=== PATIENT | female | born 1980 | race Caucasian/White ===

== ENCOUNTER 2019-10-07 13:09 | Outpatient (CLI) | payer BC, SELFPAY ==
--- NOTE | ~2019-10-07 | MMUS_ITS ---
EXAMINATION: MM diagnostic sachin BI w jeniffer, US breast RT limited HISTORY: Mastodynia, history of right breast biopsy TECHNIQUE: Craniocaudal, mediolateral, and mediolateral oblique 3-D tomosynthesis images of the osbaldo ts were performed and synthetic 2-D images were generated. Spot compression view of the right breast is also obtained. CAD analysis was submitted and interpreted. High resolution limited right breast ul trasound was performed. COMPARISON: 04/11/2017, 03/31/2016 BREAST PARENCHYMAL COMPOSITION: There are scattered areas of fibroglandular density. FINDINGS: MAMMOGRAPHIC FINDINGS: There is a stable mass with biopsy change in the right breast at the 10:00 location. No suspicious cy stic or solid mass is identified in either breast. There is no mammographic correlate for the patient 's breast pain. ULTRASOUND: A 1.3 cm mass is present at the 10:00 location 2 cm from the nipple on the right breast which has und ergone previous biopsy. No suspicious cystic or solid mass is identified. IMPRESSION: 1. No specific mammographic or sonographic correlate is identified for the patient's breast pain Furt her evaluation at this time should be based on clinical assessment. Continued follow-up physical exam ination is recommended. 2. Recommend routine screening mammography in one year. BI-RADS Category 2: Benign finding(s). Reviewed, dictated and finalized at location A. IMPRESSION: 1. No specific mammographic or sonographic correlate is identified for the nikkie ent's breast pain Further evaluation at this time should be based on clinical a ssessment. Continued follow-up physical examination is recommended. 2. Recommend routine screening mammography in one year. BI-RADS Category 2: Benign finding(s).
== END 2019-10-07 13:10 | disposition home or self-care (01) ==
PROVIDERS: PCP Nurse Practitioner; Visit Provider Nurse Practitioner
DX: N64.59 Other signs and symptoms in breast (principal)
CPT/HCPCS: 76642; 77062; 77066; G0279

== ENCOUNTER → 2020-09-18 15:27 | Outpatient (CLI) | payer BC, SELFPAY ==
--- NOTE | ~2020-09-18 | US_ITS ---
EXAMINATION: US transvaginal DATE: 09/18/2020 16:16 INDICATION: Enlarged uterus. TECHNIQUE: Multiple transvaginal sonographic images of the pelvis were obtained. COMPARISON: None. FINDINGS: The uterus measures 7.5 x 5.2 x 5.7. There is no free fluid in the pelvis. The endometrial complex me asures 4 mm in thickness. The ovaries are not visualized. IMPRESSION: 1. Normal uterus. Reviewed, dictated and finalized at location A. IMPRESSION: 1. Normal uterus.
== END ==
PROVIDERS: Visit Provider Obstetrics & Gynecology Gynecology
DX: N85.2 Hypertrophy of uterus (principal)
CPT/HCPCS: 76830

== ENCOUNTER → 2020-10-12 14:17 | Outpatient (CLI) | payer BC, SELFPAY ==
--- NOTE | ~2020-10-12 | MMUS_ITS ---
EXAMINATION: MM diagnostic sachin BI w jeniffer, US breast RT limited HISTORY: Follow-up right breast mass TECHNIQUE: Additional 3-D tomosynthesis images of the breasts were performed and synthetic 2-D images were generated. CAD analysis was submitted and interpreted. High resolution limited right breast ult rasound was performed. COMPARISON: Comparison to multiple prior studies sequentially, with oldest reviewed study dated 11/2016. BREAST PARENCHYMAL COMPOSITION: Breast composed of scattered areas of fibroglandular density. FINDINGS: MAMMOGRAPHIC FINDINGS: There is a stable circumscribed 1.5 cm mass in the upper outer quadrant of the right breast containin g a tissue marker from previous benign biopsy. There is a smaller 6 mm mass in the upper outer quadra nt of the right breast. The left breast is stable without evidence for malignancy. ULTRASOUND: Right breast ultrasound: There is a stable 1.3 cm oval circumscribed hypoechoic mass with internal ec hoes, consistent with tissue marker. At 10-11 o'clock, 6 cm from the nipple, there is a 6 mm cyst. At 3:00, 3 cm from the nipple, there is a 3 mm cyst. At 3-4:00, 3 cm from the nipple, there is an oval hypoechoic mass without posterior features. There is parallel orientation. This mass measures up to 1 .1 cm, likely benign cluster of microcysts or intramammary lymph node. Near the nipple there is an 8 mm cyst. IMPRESSION: 1. Probable benign right breast masses. 2. Recommend 6 month follow-up right breast ultrasound BI-RADS category 3, probably benign findings. Reviewed, dictated and finalized at location A. IMPRESSION: 1. Probable benign right breast masses. 2. Recommend 6 month follow-up right breast ultrasound BI-RADS category 3, probably benign findings.
== END ==
PROVIDERS: Visit Provider Nurse Practitioner
DX: N64.4 Mastodynia (principal); R92.8 Other abnormal and inconclusive findings on diagnostic imaging of breast
CPT/HCPCS: 76642; 77062; 77066; G0279

== ENCOUNTER 2021-02-01 10:36 | Outpatient (CLI) | payer BC, SELFPAY ==
--- NOTE | ~2021-02-01 | XR_ITS ---
EXAMINATION: XR wrist LT 2V INDICATION: Left wrist pain TECHNIQUE: Two views of the left wrist are obtained. COMPARISON: None available FINDINGS: There is no fracture, dislocation, or subluxation. The bones, soft tissues, and joint space s are normal. IMPRESSION: 1. No acute osseous abnormality. Reviewed, dictated and finalized at location B. NG SQUAD WORKER
== END 2021-02-01 10:37 | disposition home or self-care (01) ==
LOC: ANHLAB 10:38
PROVIDERS: PCP Family Medicine; Visit Provider Family Medicine
DX: M25.532 Pain in left wrist (principal)
CPT/HCPCS: 73100

== ENCOUNTER → 2021-02-11 12:51 | Outpatient (CLI) | payer BC, SELFPAY ==
--- NOTE | ~2021-02-11 | CT_ITS ---
EXAMINATION: CT wrist LT wo con DATE: 02/11/2021 13:26 INDICATION: Left wrist pain. TECHNIQUE: Computed tomography (CT) of the left wrist was performed without intravenous contrast. Aut omated exposure control and iterative reconstruction technique were employed. The dose-length product was 59.43 mGy-cm. COMPARISON: Left wrist radiograph 02/01/2021 FINDINGS: Bone alignment is normal. No fracture. There is a benign bone island in capitate. Joint spa megan are normal. The soft tissues are unremarkable. IMPRESSION: 1. Normal left wrist. Reviewed, dictated and finalized at location B. ENSING AND MEASURING OPTICIAN IMPRESSION: 1. Normal left wrist.
== END ==
PROVIDERS: PCP Family Medicine; Visit Provider Nurse Practitioner Gerontology
DX: M25.532 Pain in left wrist (principal)
CPT/HCPCS: 73200

== ENCOUNTER → 2021-05-10 09:51 | Outpatient (CLI) | payer BC, SELFPAY ==
--- NOTE | ~2021-05-10 | US_ITS ---
US breast RT limited 05/10/2021 10:14 Indication: Follow-up right breast mass Procedure: High-resolution Limited right breast ultrasound Comparison: Ultrasound dated 10/12/2020 Findings: There are multiple cysts of the right breast. There is an oval hypoechoic mass at 11:00, 4 cm from the nipple measuring 12 x 9 x 1.3 cm, unchanged from prior examination allowing for differenc es of technique. There is parallel orientation, no internal vascularity and internal calcifications. Impression: 1: Stable benign-appearing right breast mass at 11:00, 4 cm from the nipple. BI-RADS CATEGORY 3-PROBABLY BENIGN FINDING RECOMMENDATION: Six-month follow-up Limited right breast ultrasound and bilateral mammogram recommend ed. Reviewed, dictated and finalized at location A. VE MACHINE TENDER Impression: 1: Stable benign-appearing right breast mass at 11:00, 4 cm from the nipple. BI-RADS CATEGORY 3-PROBABLY BENIGN FINDING RECOMMENDATION: Six-month follow-up Limited right breast ultrasound and bilater al mammogram recommended.
== END ==
PROVIDERS: Visit Provider Obstetrics & Gynecology Gynecology
DX: N63.10 Unspecified lump in the right breast, unspecified quadrant (principal); R92.8 Other abnormal and inconclusive findings on diagnostic imaging of breast
CPT/HCPCS: 76642

== ENCOUNTER 2021-09-27 13:24 | Outpatient (CLI) | payer BC, SELFPAY ==
--- NOTE | ~2021-09-27 | MMUS_ITS ---
EXAMINATION: MM diagnostic sachin BI w jeniffer, US breast RT limited HISTORY: Follow-up right breast mass TECHNIQUE: Additional 3-D tomosynthesis images of the breasts were performed and synthetic 2-D images were generated. CAD analysis was submitted and interpreted. High resolution Limited right breast ult rasound was performed. COMPARISON: Comparison to multiple prior studies sequentially, with oldest reviewed study dated 01/22. BREAST PARENCHYMAL COMPOSITION: The breasts are heterogenously dense, which may obscure small masses FINDINGS: MAMMOGRAPHIC FINDINGS: The breasts are stable. Mass in the upper outer quadrant of the right breast is unchanged containing a tissue marker from previous benign biopsy. ULTRASOUND: Limited right breast ultrasound: At 11:00, 4 cm from the nipple, there is an oval circumscribed hypoe choic mass measuring 1.4 x 0.8 x 1.2 cm compared with 1.4 x 1.3 x 0.8 cm on 10/07/2019, without signif icant interval change. At 11:00, 6 cm from the nipple there are 2 adjacent cysts, largest measuring 8 mm. IMPRESSION: 1. No evidence for malignancy in either breast. Stable benign-appearing right breast mass. 2. Routine yearly screening mammogram and regular clinical breast examination are recommended. BI-RADS Category 2: Benign finding(s). Reviewed, dictated and finalized at location A. IMPRESSION: 1. No evidence for malignancy in either breast. Stable benign-appearing right b reast mass. 2. Routine yearly screening mammogram and regular clinical breast examination a re recommended. BI-RADS Category 2: Benign finding(s).
== END 2021-09-27 13:25 | disposition home or self-care (01) ==
PROVIDERS: PCP Family Medicine; Visit Provider Nurse Practitioner
DX: R92.8 Other abnormal and inconclusive findings on diagnostic imaging of breast (principal); N63.10 Unspecified lump in the right breast, unspecified quadrant
CPT/HCPCS: 76642; 77062; 77066; G0279

== ENCOUNTER 2021-11-11 01:27 | Day surgery (SDC) | payer BC, SELFPAY ==
[2021-11-05 13:15] VITALS: BMI 23.3
--- NOTE | 2021-11-05 13:35 | PC.NURSE ---
Report to the Outpatient Waiting Room, entrance under the green pavilion located off [facility], at 1230 on 11-11-21. OR Time: 1430. - You and your visitor will be asked to self-screen and do not enter if you have any COVID symptoms. - Only one visitor and NO children visitors are allowed at this time. - The patient visitor is requested to leave or wait in car when not with patient due to restrictions. - A mask is required within the hospital. Patients may have clear liquids (water, carbonated beverages, clear teas, apple juice) until 3 hours prior to surgery with a maximum of 20 ounces. 1130 - No food from midnight until time of surgery - Infants may have breast milk until 4 hours before surgery, formula 6 hours prior to surgery. - Children will be allowed to drink immediately following surgery. If applicable, please bring a bottle or sippy cup to assist with drinking. Juice, water, soda, and popsicles are readily available. For infants on formula, please bring formula the day of surgery. Pacifiers are allowed. Take the following medications with a SIP of water the morning of surgery: None Medications to discontinue per physician: Vitamins and supplements; ibuprofen Date to take last dose: 11-08-21; per Dr. Altamirano Please no make-up, nail ivorian, hairspray, perfume, deodorant, or body powder the day of surgery. No jewelry (including any body piercings) or valuables the day of surgery, leave them at home. Please take a shower or bath the night before, or the morning of, surgery with an antibacterial soap. Wear comfortable, loose fitting clothing. Children are encouraged to wear pajamas. - Jewelry must be removed prior to entering the operating room. Rings and piercings that are not removed may be cut off. - The hospital will not accept responsibility for valuables. - Please leave all valuables, including medications, at home the day of surgery. If you are going home after surgery, a licensed straddle truck driver must drive you home. - NO public transportation without another adult. - We recommend that an adult stay with you for 24 hours following discharge. - We also recommend that you do not drive, make important decision, drink alcoholic beverages, or take any drugs that were not prescribed by your health care provider for at least 24 hours after your discharge time. For Pediatric surgeries, we recommend two adults accompany the child home (only one inside the building at this time). Follow any additional instructions given to you from your surgeon. If you or anyone in your household have experienced Covid symptoms in the past week, please notify your surgeon or the nurse liaison at the phone number below for possible testing. Telephone instructions given to Dalila Quach and asked if any additional questions and then verbalized understanding. Patient advised to call surgeon office or pre surgery nurse liaison [phone] if any additional questions.
--- NOTE | 2021-11-11 08:32 | P.PNAN_ITS ---
Anes - Initial Pre Proc Eval Procedure: Operation Date: 11/11/21 14:15 Proposed Procedures p Hysteroscopy, Dilation and Curettage - Vinita Altamirano MD Date/Time: 11/11/21 08:32 Surgeon: Vinita Altamirano MD Pre Op Diagnosis: menorrhagia Patient Data Age: 41 Gender: F Height: 1.63 m Weight: 61.69 kg Allergies Allergy/AdvReac Type Severity Reaction Status Date / Time erythromycin base Allergy Intermediate SOB Verified 11/11/21 12:27 Home Medications Medication Instructions Recorded Confirmed Type ergocalciferol (vitamin D2) 1,250 1,250 mcg PO WEEKLY 11/05/21 11/11/21 History mcg (50,000 unit) capsule ibuprofen 200 mg tablet 400 mg PO Q6H PRN Headache 11/05/21 11/11/21 History linaclotide 72 mcg capsule 144 mcg PO QAM PRN Constipation 11/05/21 11/11/21 History (Linzess) Patient hx anesthesia problems: none Family hx anesthesia problems: none Results Review: All pre-operative results and documents have been reviewed as part of the pre-operative evaluation. [facility] Past Medical History Medical History (Updated 11/11/21 @ 13:11 by Dionisio Esparza MD) Constipation Menorrhagia Migraines Seasonal allergies Surgical History Surgical History (Updated 11/11/21 @ 09:00 by Vinita Altamirano MD) History of breast biopsy 2017 benign History of nasal surgery As a teenager Hx of section x3 Family History Family History Father Diabetes mellitus Ulcerative colitis Mother Osteopenia Gallbladder & bile duct stone, acute cholecystitis and obstruction Other Cerebrovascular accident Heart disease Social History Social History Social History: Smoking status: Never smoker Second hand tobacco smoke exposure: No Alcohol intake: current Alcohol use details: occasionally Substance use: never Substance use type: does not use Living arrangements: with family Gender identity (if verbalized by the patient): Female Sexual Orientation (if Verbalized by the Patient): Straight or Heterosexual Spiritual care concerns: No Anes - Eval Final PreProcedure Day of Procedure 11/11/21 08:32 Patient weight: normal Heart: regular rate and rhythm Lungs: clear to auscultation and normal air movement Airway: Mallampati scale class II Neurological: alert and oriented Last oral intake: >/= 8 hours ASA classification: II Emergent: no Anesthetic plan: proceed Anesthesia type and monitoring: general GIVS Results Review: All pre-operative results and documents have been reviewed as part of the pre- operative evaluation. Informed Consent: The patient's anesthetic plan and its attendant risks and benefits were discussed with the patient/family/POA. Questions were solicited and answers provided to the satisfaction of the patient/family/POA.
--- NOTE | 2021-11-11 08:56 | WPDHPUPDATE1 ---
History and Physical Update Update Date/Time: 11/11/21 08:56 History and Physical has been reviewed, including an updated exam of the patient. There are NO changes in the patient's condition. Risks, benefits, and alternatives have been discussed and questions answered. Patient agrees to proceed with procedure.
--- NOTE | 2021-11-11 08:57 | PM.HPGS ---
History of Present Illness History of Present Illness Consent: Risks, benefits, and alternatives have been discussed and questions answered. Patient agrees to proceed with procedure. Chief complaint: menorrhagia Narrative: Dalila Quach is a 41 year old female with increasingly heavy cycles. Patient goes through a tampon in less than an hour on her heavy day. Cycles are regular and last from 2 to 7 days. It was recommended to proceed with further workup with D&C hysteroscopy. Risks of infection, bleeding, perforation and possible pathology are reviewed. Patient agrees to proceed and all questions are answered. Review of Systems Constitutional: Constitutional: Reports fatigue and Reports headache(s) Genitourinary: Genitourinary: Reports other (Cramping) Musculoskeletal: Musculoskeletal: Reports arthralgias PMFSH Past Medical History Medical History (Updated 11/11/21 @ 09:00 by Vinita Altamirano MD) Constipation Migraines Seasonal allergies Surgical History Surgical History (Updated 11/11/21 @ 09:00 by Vinita Altamirano MD) History of breast biopsy 2017 benign History of nasal surgery As a teenager Hx of section x3 Family History Family History Father Diabetes mellitus Ulcerative colitis Mother Osteopenia Gallbladder & bile duct stone, acute cholecystitis and obstruction Other Cerebrovascular accident Heart disease Social History Social History Social History: Smoking status: Never smoker Second hand tobacco smoke exposure: No Alcohol intake: current Alcohol use details: occasionally Substance use: never Substance use type: does not use Living arrangements: with family Gender identity (if verbalized by the patient): Female Sexual Orientation (if Verbalized by the Patient): Straight or Heterosexual Spiritual care concerns: No Meds Home Medications and Allergies Home Medications Medication Instructions Recorded Confirmed Type ergocalciferol (vitamin D2) 1,250 1,250 mcg PO WEEKLY 11/05/21 11/05/21 History mcg (50,000 unit) capsule ibuprofen 200 mg tablet 400 mg PO Q6H PRN Headache 11/05/21 11/05/21 History linaclotide 72 mcg capsule 144 mcg PO QAM PRN Constipation 11/05/21 11/05/21 History (Linzess) Allergies Allergy/AdvReac Type Severity Reaction Status Date / Time erythromycin base Allergy Intermediate sob Verified 11/05/21 13:08 Exam Const: General: healthy appearing and alert Orientation/consciousness: patient oriented x3 GI: GI Palp: Yes Soft to palpation, No Tenderness to palpation present (GI) and No Palpable mass present : External Female Exam: normal external appearance Speculum Exam - Vagina: normal appearance of the vagina and normal vaginal discharge Speculum Exam - Cervix: normal appearance of the cervix Bimanual exam- vagina & uterus: uterine size normal and consistency normal Bimanual Exam- Adnexa, other: normal adnexae and No adnexal tenderness Neuro: General: patient oriented x3 Assessment and Plan Assessment and plan (1) Menorrhagia: Code(s): N92.0 - Excessive and frequent menstruation with regular cycle Status: Acute Assessment and Plan: Plan to proceed with D&C hysteroscopy
[2021-11-11] MEDS: ACETAMINOPHEN 500 MG TABLET 1000 MG PO (12:35)
[2021-11-11] MEDS: LACTATED RINGERS 1,000 ML 30 ML IV CONT (12:40)
[2021-11-11 12:45] VITALS: BP 104/64; PULSE 76; RESP 16; TEMP 36.9; O2SAT 100
[2021-11-11] MEDS: LIDOCAINE HCL 1% PF 30 ML VIAL 10 ML INFILTRATE (14:01)
[2021-11-11 14:10] VITALS: BP 107/68; PULSE 64; RESP 12
--- NOTE | 2021-11-11 14:12 | P.OP_ITS ---
Procedure Note - Detailed Date of Procedure 11/11/21 Pre-op Diagnosis menorrhagia Post-op Diagnosis Same Procedure Performed D&C hysteroscopy with MyoSure resection of polyps Surgeon Vinita Altamirano MD Anesthesia MAC and Local Findings Uterus sounds to 8cm. The endometrium is very shaggy with probable polyps versus secretory endometrium. There is a short midline septum. Description of Procedure The patient is taken to the operating room and placed under anesthesia in the dorsal lithotomy position. She was prepped and draped in the usual sterile fashion. [place] speculum was placed in the vagina and the cervix grasped on the anterior lip with a tenaculum. The cervix is injected in each quadrant with 1% lidocaine. The uterus is sounded to 8cm. The cervix is serially dilated to an 8 Hegar. The diagnostic hysteroscope was placed with the above-stated findings. MyoSure device is opened and placed and under direct visualization the thickened endometrium and polyps are excised. The device is removed and the medium sharp curette used to curette the endometrium until a good uterine cry was noted in all areas. All instruments are removed. Sponge, needle, and instrument counts are correct per the OR staff. Patient is awakened from anest hesia and taken to recovery in stable condition. Estimated Blood Loss 5 Drains No Packing No Pathology Yes (Endometrial shavings and curettings) Complications No immediate complications Condition Stable Disposition PACU
[2021-11-11 14:15] VITALS: BP 106/75; PULSE 69; RESP 12; O2SAT 100
[2021-11-11 14:45] VITALS: BP 103/61; PULSE 54; RESP 12; O2SAT 100
== END 2021-11-11 15:20 | disposition home or self-care (01) ==
PROVIDERS: PCP Family Medicine; Visit Provider Obstetrics & Gynecology Gynecology
PROC: 0U5B8ZZ Destruction of Endometrium, Via Natural or Artificial Opening Endoscopic (ICD-10-PCS; CPT 58563; principal; 2021-11-11 14:15)
DX: N92.0 Excessive and frequent menstruation with regular cycle (principal); K59.00 Constipation, unspecified
CPT/HCPCS: 58558; 88305; A9270; J2250; J2704; J3010; J7030; J7120

== ENCOUNTER → 2021-12-04 12:17 | Outpatient (CLI) | payer BC, SELFPAY ==
--- NOTE | ~2021-12-04 | MR_ITS ---
EXAMINATION: MR wrist LT wo con DATE: 12/04/2021 12:53 INDICATION: Left wrist pain. TECHNIQUE: Magnetic resonance imaging (MRI) of the wrist was performed without intravenous contrast. Sequences performed include coronal T1-weighted FSE, coronal PD-weighted FS FSE, axial PD-weighted FS FSE, axial PD-weighted FSE, sagittal PD-weighted FSE, and sagittal PD-weighted FS FSE. COMPARISON: Left wrist CT 02/11/2021, radiographs 02/01/2021 FINDINGS: Intrinsic ligaments: The scapholunate ligament and lunotriquetral ligament are normal. Triangular fibrocartilage complex (TFCC): The triangular fibrocartilage is normal. Extensor wrist: The extensor tendons are normal. Flexor wrist: The flexor tendons are normal. Median nerve is normal. Guyon's canal: The ulnar nerve is normal. Bones/other: Bone alignment is normal. No fracture. There is a 12 x 6 x 13 mm ganglion cyst dorsal to scaphoid, alysha bryanna, and capitate that likely arises from the lunatocapitate joint. IMPRESSION: 1. 12 x 6 x 13 mm ganglion cyst dorsal to scaphoid, lunate, and capitate that likely arises from the lunatocapitate joint. Reviewed, dictated and finalized at location A. IMPRESSION: 1. 12 x 6 x 13 mm ganglion cyst dorsal to scaphoid, lunate, and capitate that l ikely arises from the lunatocapitate joint.
== END ==
PROVIDERS: PCP Orthopaedic Surgery; Visit Provider Orthopaedic Surgery
DX: M25.832 Other specified joint disorders, left wrist (principal)
CPT/HCPCS: 73221

== ENCOUNTER 2022-01-27 01:14 | Day surgery (SDC) | payer BC, SELFPAY ==
[2022-01-21 14:41] VITALS: BMI 23.8
--- NOTE | 2022-01-21 14:47 | PC.NURSE ---
Report to the Outpatient Waiting Room, entrance under the green pavilion located off [facility], at time 0600 on date 01/27/22. Planned Procedure Time: 0730. Time changes happen often and if your time is changed the preop area will call you the afternoon before. - You and your visitor will be asked to self-screen and do not enter if you have any COVID symptoms. - We encourage only one visitor and NO visitors under age 16 are allowed at this time. Your visitor will receive communication by the phone number that is given day of service. - The patient visitor is requested to social distance or may leave the building when not with patient due to restrictions. - A mask is OPTIONAL within the hospital. Patients may have clear liquids (water, carbonated beverages, clear teas, apple juice) until 3 hours prior to surgery with a maximum of 20 ounces. - No food from midnight until time of surgery Take the following medications with a SIP of water the morning of surgery: NONE Medications to discontinue per physician: VITAMINS Date to take last dose: 01/23/22 Please no make-up, nail surinamese, hairspray, perfume, deodorant, or body powder the day of surgery. No jewelry (including any body piercings) or valuables the day of surgery, leave them at home. Please take a shower or bath the night before, or the morning of, surgery with an antibacterial soap. Wear comfortable, loose fitting clothing. - Jewelry must be removed prior to entering the operating room. Rings and piercings that are not removed may be cut off. - The hospital will not accept responsibility for valuables. - Please leave all valuables, including medications, at home the day of surgery. If you are going home after surgery, a licensed dump truck driver off highway must drive you home. - NO public transportation without another adult. - We recommend that an adult stay with you for 24 hours following discharge. - We also recommend that you do not drive, make important decision, drink alcoholic beverages, or take any drugs that were not prescribed by your health care provider for at least 24 hours after your discharge time. Follow any additional instructions given to you from your surgeon. If you or anyone in your household have experienced Covid symptoms in the past week, please notify your surgeon or the nurse liaison at the phone number below for possible testing. Telephone instructions given to PT - RODRI LEÓN and asked if any additional questions and then verbalized understanding. Patient advised to call surgeon office or pre surgery nurse liaison [phone] if any additional questions.
[2022-01-27 06:05] VITALS: BP 108/62; PULSE 72; RESP 16; TEMP 36.7; O2SAT 100
[2022-01-27] MEDS: KETOROLAC 15 MG/ML VIAL (*BKC) IV PUSH (06:44)
[2022-01-27] MEDS: ACETAMINOPHEN 500 MG TABLET 1000 MG PO (06:46)
[2022-01-27] MEDS: LACTATED RINGERS 1,000 ML 30 ML IV CONT (06:50)
--- NOTE | 2022-01-27 07:09 | WPDANESEPPF ---
Anes - Initial Pre Proc Eval Procedure: Operation Date: 01/27/22 07:30 Proposed Procedures p Excision Ganglion Cyst Left Wrist - Edd Martinez MD Date/Time: 01/27/22 07:09 Surgeon: Edd Martinez MD Pre Op Diagnosis: left wrist ganglion cyst Patient Data Age: 41 Gender: F Height: 1.63 m Weight: 63.8 kg Last Vital Signs Temp 36.7 C 01/27/22 06:05 Pulse 72 01/27/22 06:05 Resp 16 01/27/22 06:05 BP 108/62 01/27/22 06:05 Pulse Ox 100 01/27/22 06:05 O2 Del Method Room Air 01/27/22 06:05 Allergies Allergy/AdvReac Type Severity Reaction Status Date / Time erythromycin base Allergy Intermediate SOB Verified 01/27/22 06:06 Home Medications Medication Instructions Recorded Confirmed Type ergocalciferol (vitamin D2) 1,250 1,250 mcg PO WEEKLY 11/05/21 01/27/22 History mcg (50,000 unit) capsule ibuprofen 200 mg tablet 400 mg PO Q6H PRN Headache 11/05/21 01/27/22 History linaclotide 72 mcg capsule 144 mcg PO QAM PRN Constipation 11/05/21 01/27/22 History (Linzess) Patient hx anesthesia problems: none Family hx anesthesia problems: none Results Review: All pre-operative results and documents have been reviewed as part of the pre-operative evaluation. [facility] Past Medical History Medical History Constipation Ganglion cyst of dorsum of left wrist Menorrhagia Migraines Seasonal allergies Surgical History Surgical History History of breast biopsy 2017 benign History of nasal surgery As a teenager Hx of section x3 Family History Family History Father Diabetes mellitus Ulcerative colitis Mother Osteopenia Gallbladder & bile duct stone, acute cholecystitis and obstruction Other Cerebrovascular accident Heart disease Social History Social History Social History: Smoking status: Former smoker Second hand tobacco smoke exposure: No Additional smoking assessment comments: IN COLLEGE Alcohol intake: current Drinks per week: 1 Alcohol use details: occasionally Substance use: never Substance use type: does not use Living arrangements: with family Gender identity (if verbalized by the patient): Female Sexual Orientation (if Verbalized by the Patient): Straight or Heterosexual Spiritual care concerns: No Anes - Eval Final PreProcedure Day of Procedure 01/27/22 07:09 Patient weight: normal Heart: regular rate and rhythm Lungs: clear to auscultation Airway: Mallampati scale class 1 Neurological: alert and oriented Last oral intake: >/= 8 hours ASA classification: II Emergent: no Anesthetic plan: proceed Anesthesia type and monitoring: general GIVS and standard monitoring Results Review: All pre-operative results and documents have been reviewed as part of the pre-operative evaluation. Informed Consent: The patient's anesthetic plan and its attendant risks and benefits were discussed with the patient/family/POA. Questions were solicited and answers provided to the satisfaction of the patient/family/POA.
--- NOTE | 2022-01-27 07:16 | WPDHPUPDATE1 ---
History and Physical Update Update Date/Time: 01/27/22 07:16 History and Physical has been reviewed, including an updated exam of the patient. There are NO changes in the patient's condition. Risks, benefits, and alternatives have been discussed and questions answered. Patient agrees to proceed with procedure.
[2022-01-27] MEDS: ceFAZolin 2 GM/D5W 50 ML 2 GM/50 ML BAG IVPB (07:27)
[2022-01-27] MEDS: BUPIVACAINE/EPINEPHRINE 0.25% 50 ML VIAL 10 ML INFILTRATE (08:01)
[2022-01-27 08:16] VITALS: BP 97/66; PULSE 79; RESP 16; O2SAT 100
--- NOTE | 2022-01-27 08:34 | W.PM.PROC2 ---
Procedure Note - Detailed Date of Procedure 01/27/22 Pre-op Diagnosis left dorsal wrist ganglion cyst Post-op Diagnosis Same Procedure Performed excision left dorsal wrist ganglion Surgeon Edd Martinez MD Heavy Equipment Service Technician Allison Dumont Anesthesia MAC and Local Description of Procedure The patient was identified and proper site identified. She was taken to the operating room and transferred to the OR table placing her supine taking care to pad her torso and extremities. A nonsterile tourniquet was placed high in the left arm which was then prepped and draped in usual sterile fashion. She was administered IV sedation. Several cc of 1% lidocaine and epinephrine solution was infiltrated into the subcutaneous tissue over the dorsum of the left wrist. Extremity was exsanguinated, tourniquet was inflated to 200 millimeters of mercury remaining up for about 17 minutes. A transverse incision was made utilizing the skin lines. Subcutaneous tissue was bluntly dissected and tendons retracted allowing for exposure of the wrist capsule. Hemostasis was carried out with a bipolar electrocautery. Capsule was divided transversely between the stabilizing ligaments and the ganglion identified. It was removed without difficulty. The wound was irrigated with sterile saline. Skin edges were reapproximated with for 0 Prolene subcuticular stitch. Steri-Strips were applied. Sterile dressing was applied. Tourniquet was released. She tolerated procedure well. She was transferred back to a cart and taken to recovery area in stable condition. There were no known intraoperative complications. Estimated blood loss negligible. She received perioperative antibiotics. Estimated Blood Loss 1 Tourniquet Time 17 Drains No Packing No Pathology None sent Complications No immediate complications Condition Stable Disposition PACU
[2022-01-27 08:45] VITALS: BP 88/51; PULSE 62; RESP 16
[2022-01-27 09:15] VITALS: BP 92/62; PULSE 55; RESP 16
== END 2022-01-27 09:18 | disposition home or self-care (01) ==
PROVIDERS: PCP Family Medicine; Visit Provider Orthopaedic Surgery
PROC: (CPT 25111; principal; 2022-01-27 07:30)
DX: M67.432 Ganglion, left wrist (principal); K59.00 Constipation, unspecified; Z87.891 Personal history of nicotine dependence
CPT/HCPCS: 25111; A9270; J0690; J1885; J2250; J2405; J2704; J3010; J7120

== ENCOUNTER 2024-12-26 09:04 | Outpatient (CLI) | payer OTHER, SELFPAY ==
--- OUTSIDE RECORDS SUMMARY | 2019-10-07 | XMS_ITS | Encounter Summary ---
Author Organization [facility] Healthcare Address [facility] [place] [address] Care Team Providers Care Hardware Assembler Name Role Phone Vinita Altamirano MD Primary Care Provider + Reason for Visit * Diagnostic Imaging (Routine) - Closed Specialty Diagnoses / Procedures Referred By Contac t Referred To Contact Procedures Breast Imaging US Outside Reference Referral, Self Referral ID Status Reason Start Date Expiration Date Visits Re quested Visits Authorized [id number] Closed 07/31/2022 08/30/2023 1 1 Encounter Details Date Type Department Care Team (Late st Contact Info) Description 10/07/2019 Hospital Encounter [facility] [address] [place] [id number] Social History Tobacco Use Types Packs/Day Years Used Date Smoking Tobacco: Former Smokeless Tobacco: Never Alcohol Use Standard Drinks/Week Comments Yes 0 (1 standard drink = 0.6 oz pur e alcohol) occasionally Comments Unknown Sex and Gender Information Value Date Recorded Sex Assigned at Not on file Legal Sex Female 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 There will be no report generated by a [facility] Radiologist. Narrative RAD_MAMMO_[facility] - 07/31/2022 10:49 AM CDT EXAMINATION: Images For Reference Purposes Only us Self Referral IMG MAMMO PROCEDURES Final Resul t RAD_MAMMO_[facility] documented in this encounter Visit Diagnoses Not on filedocumented in this encounter Care Teams Hardware Assembler Relationship Specialty Start Date End Date Vinita Altamirano MD [address]22 [address] [facility] [address] [place] [address] PCP - General Gynecology 02/24/18 10/24/20 documented as of this encounter
--- OUTSIDE RECORDS SUMMARY | 2019-10-07 00:05 | XMS_ITS | Encounter Summary ---
Author Organization [facility] Healthcare Address [facility] [place] [address] Care Team Providers Care Whiskey Filterer Name Role Phone Vinita Altamirano MD Primary Care Provider + Reason for Visit * Diagnostic Imaging (Routine) - Closed Specialty Diagnoses / Procedures Referred By Contac t Referred To Contact Procedures Breast Imaging Diagnostic Outside Reference Referral, Self Referral ID Status Reason Start Date Expiration Date Visits Re quested Visits Authorized [id number] Closed 07/31/2022 08/30/2023 1 1 Encounter Details Date Type Department Care Team (Late st Contact Info) Description 10/07/2019 12:05 AM CDT Hospital Encounter [facility] ([facility]) [address] [place] [id number] Social History Tobacco Use Types Packs/Day Years Used Date Smoking Tobacco: Former Smokeless Tobacco: Never Alcohol Use Standard Drinks/Week Comments Yes 0 (1 standard drink = 0.6 oz pur e alcohol) occasionally Comments Unknown Sex and Gender Information Value Date Recorded Sex Assigned at Not on file 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 Radiology. There will be no report generated by a [facility] Radiologist. Narrative RAD_MAMMO_[facility] - 07/31/2022 10:50 AM CDT EXAMINATION: Images For Reference Purposes Only us Self Referral IMG MAMMO PROCEDURES Final Resul t [facility]_M[facility] documented in this encounter Visit Diagnoses Not on filedocumented in this encounter Care Teams Whiskey Filterer Relationship Specialty Start Date End Date Vinita Altamirano MD [address] [id number] PCP - General Gynecology 02/24/18 10/24/20 documented as of this encounter
--- NOTE | ~2024-12-26 | MR_ITS ---
EXAMINATION: MRA brain wo con DATE: 12/26/2024 09:44 INDICATION: Headache, unspecified. TECHNIQUE: Magnetic resonance angiography (MRA) of the brain was performed without intravenous contrast with T1-weighted SPGR by the 3D [id number] technique. Maximum intensity projection 3D-reconstructions were obtained. COMPARISON: None. FINDINGS: The vertebral arteries are codominant. There is no significant stenosis of basilar artery or the posterior cerebral arteries. There is no significant stenosis of the intracranial internal carotid arteries or anterior or middle cerebral arteries. Anterior communicating artery is normal. The posterior co mmunicating arteries are normal. There is no aneurysm. IMPRESSION: 1. Normal MRA. Reviewed, dictated and finalized at location E. IMPRESSION: 1. Normal MRA.
--- OUTSIDE RECORDS SUMMARY | 2024-12-26 09:44 | XMS_ITS | Clinical Summary ---
Author Organization [facility] Address [address] [place] [id number] Care Team Providers Care Crab Fisherman Name Role Phone Unavailable Primary Care Provider Unavailabl e Social History Tobacco Use Types Packs/Day Years Used Date Smoking Tobacco: Never Assessed Comments Unknown Sex and Gender Information Value Date Recorded Sex Assigned at Not on file Legal Sex Female 4:40 PM CDT Gender Identity Not on file Sexual Orientation Not on file Plan of Treatment Health Maintenance Due Date Last Done Comments Cervical Cancer Screening Pa p Smear (Age 30 to 64) Every 3 Years 1980 Annual Physical 1983 Hepatitis C 1998 DTaP, Tdap and Td Vaccines ( 1 - Tdap) 1999 Hepatitis B Vaccines (1 of 3 - 19+ 3-dose series) 1999 HPV Vaccines (1 - 3-dose SCD M series) 2007 Cervical Cancer Screening Pa p with HPV Testing (Age 30 to 64) Every 5 Years 2010 Cervical Cancer Screening with HPV 2010 Mammogram Screening 2020 COVID-19 Vaccine ( - 2023-2 5 season) 2024 Meningococcal B Vaccine Aged Out No l onger eligible based on patient's age to complete this topic Meningococcal Vaccine Aged Out No kacy farhad eligible based on patient's age to complete this topic Pneumococcal Vaccine: Pediat rics (0 to 5 Years) and At-Risk Patients (6 to 49 Years) Aged Out No longer eligible b ased on patient's age to complete this topic RSV Immunizations Under 20 Months Aged Out No longer eligible based on patient's age to complete this topic
--- OUTSIDE RECORDS SUMMARY | 2024-12-26 09:44 | XMS_ITS | Clinical Summary ---
Author Organization [facility] Address [address] [place] [phone] Phone Care Team Providers Care Land Developer Name Role Phone Unavailable Primary Care Provider Unavailabl e Social History Tobacco Use Types Packs/Day Years Used Date Smoking Tobacco: Never Assessed Comments Unknown Sex and Gender Information Value Date Recorded Sex Assigned at Not on file Legal Sex Female 9:40 AM CDT Gender Identity Not on file Sexual Orientation Not on file Plan of Treatment Health Maintenance Due Date Last Done Comments DTAP/TDAP/TD VACCINES (1 - Tdap) 1999 HEPATITIS B VACCINES (1 of 3 - 19+ 3-dose series) 04/1999 HPV/Cotest (21-29) 2001 HPV VACCINES (1 - 3-dose SCDM series) 2007 CERVICAL CANCER SCREENING 2010 HPV/Cotest (30-65) 2010 PAP SMEAR 2010 BREAST CANCER SCREENING 2020 INFLUENZA VACCINE (#1) 2024 Insurance BCBS BLUE ACCESS/TRUE BLUE PPO
--- OUTSIDE RECORDS SUMMARY | 2024-12-26 09:44 | XMS_ITS | Encounter Summary ---
Author Organization [facility] Address [address] [place] [address] Care Team Providers Care Gym Instructor Name Role Phone Leanne Lopez MD Primary Care Provider + Encounter Details Date Type Department Care Team (Late st Contact Info) Description 08/03/2019 Lab Requisition [facility] DermPath Lab [address] 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 Gender Identity Not on file Sexual Orientation Not on file documented as of this encounter Plan of Treatment Not on file documented as of this encounter Procedures Procedure Name Priority Date/Time Associated Diagnosis Comments DERMATOPATHOLOGY Routine 08/03/2019 12:0 0 AM CDT documented in this encounter Results * DERMATOPATHOLOGY (08/03/2019 12:00 AM CDT) Case Report Dermatopathology Report Case: [id number] Authorizing Provider: Cyn Sanchez DO Collected: 08/03/2019 12:00 AM Ordering Location: [facility] Lab Received: 08/03/2019 11:42 AM Pathologist: Meredith Rhodes MD Specimen: Skin, left forearm 0 1:50 PM CDT DERMATOPATHOLOGY LABORATORY Final Diagnosis Specimen A. SKIN, left forearm: SEBORRHEIC KERATOSIS, IRRITATED AND INFLAMED (L82.0) (see microscopic description) 0 1:50 PM CDT DERMATOPATHOLOGY LABORATORY at 1350 CDT Clinical History ISK vs recurrent DF vs other. Prior bx 2016 DF c/w new onset growth in same location ISK vs recurrent DF vs other. 0 1:50 PM CDT DERMATOPATHOLOGY LABORATORY Gross Description Specimen A: Received is one formalin filled container labeled with the patient's name and designated left forearm. The specimen consists of a shave measuring [id number]. Jar 0. 0 1:50 PM CDT DERMATOPATHOLOGY LABORATORY Microscopic Description Specimen A. SKIN, left forearm: Sections show acanthosis, papillomatosis and hyperkeratosis. There is a lymphohistiocytic infiltrate within the papillary dermis. 0 1:50 PM CDT DERMATOPATHOLOGY LABORATORY Disclaimer An external and internal positive and negative controls are appropriate for the histochemical, immunohistochemical and immunofluorescence stain(s) in this case (if any), except where stated explicitly. The performance characteristics of the stain(s) cited in this report were developed and its performance characteristic determined by the Dermatopathology Laboratory at [facility], directed by Dr. Iyv Lomeli. These tests need not be, and therefore are not, approved by the [place] Food and Drug Administration. The tests are used for clinical purposes. Billing Codes Specimen Charges Stain Charges 73037 1 0 1:50 PM CDT DERMATOPATHOLOGY LABORATORY Embedded Images 0 1:50 PM CDT DERMATOPATHOLOGY LABORATORY Pathology/Cytolog y TISSUE SPECIMEN FROM SKIN / Unknown 08/03/2019 08/03/2019 11:42 AM CDT us Cyn Sanchez DO LAB - PATHOLOGY/CYTOLOGY ORDERABLES Final Result DERMATOPATHOLOGY LABORATORY [facility] - Department of Dermatology [facility] [facility], 5th [place] [address], [facility] [phone] documented in this encounter Visit Diagnoses Not on filedocumented in this encounter Care Teams Gym Instructor Relationship Specialty Start Date End Date Rostovtseva, Leanne Y, MD [address] [place] [address] PCP - General 11/19/21 documented as of this encounter
--- OUTSIDE RECORDS SUMMARY | 2024-12-26 09:44 | XMS_ITS | Encounter Summary ---
Author Organization [facility] Address [address] [place] [address] Care Team Providers Care Swimming Instructor Name Role Phone Leanne Lopez MD Primary Care Provider + Encounter Details Date Type Department Care Team (Late st Contact Info) Description 10/04/2019 Lab Requisition [facility] DermPath Lab [address] 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 DermPath Lab Received: 10/04/2019 12:13 PM Pathologist: Alyssa Pascual MD Specimen: Skin, right back 0 1:07 PM CDT DERMATOPATHOLOGY LABORATORY Final Diagnosis Specimen A. SKIN, right back: COMPOUND MELANOCYTIC NEVUS (D22.5) 0 1:07 PM CDT DERMATOPATHOLOGY LABORATORY at 1307 CDT Clinical History Nevus R/O atypia. 0 1:07 PM CDT DERMATOPATHOLOGY LABORATORY Gross Description Specimen A: Received is one formalin filled container labeled with the patient's name and designated right back. The specimen consists of a shave measuring [id number]. Jar 0. 0 1:07 PM CDT DERMATOPATHOLOGY LABORATORY Microscopic Description Specimen A. SKIN, right back: There are nests of melanocytes at the dermal-epidermal junction and within the dermis. 0 1:07 PM CDT DERMATOPATHOLOGY LABORATORY Disclaimer An external and internal positive and negative controls are appropriate for the histochemical, immunohistochemical and immunofluorescence stain(s) in this case (if any), except where stated explicitly. The performance characteristics of the stain(s) cited in this report were developed and its performance characteristic determined by the Dermatopathology Laboratory at [facility], directed by Dr. Ivy Lomeli. These tests need not be, and therefore are not, approved by the [place] Food and Drug Administration. The tests are used for clinical purposes. Billing Codes Specimen Charges Stain Charges 18250 1 0 1:07 PM CDT DERMATOPATHOLOGY LABORATORY Embedded Images 0 1:07 PM CDT DERMATOPATHOLOGY LABORATORY Pathology/Cytolog y TISSUE SPECIMEN FROM SKIN / Unknown 10/03/2019 10/04/2019 12:13 PM CDT us Cyn Sanchez DO LAB - PATHOLOGY/CYTOLOGY ORDERABLES Final Result DERMATOPATHOLOGY LABORATORY [facility] - Department of Dermatology [facility]/[address] [address], [facility] [phone] documented in this encounter Visit Diagnoses Not on filedocumented in this encounter Care Teams Swimming Instructor Relationship Specialty Start Date End Date Leanne Lopez MD [address] [place] [id number] PCP - General 11/19/21 documented as of this encounter
--- OUTSIDE RECORDS SUMMARY | 2024-12-26 09:44 | XMS_ITS | Clinical Summary ---
Author Organization [facility] Address [address] [place] [address] Care Team Providers Care Procedure Manager Name Role Phone Leanne Lopez MD Primary Care Provider + Source Comments [facility],non[facility] Affiliates and Associated Physician Practices is amultiple site organization consisting of ambulatory clinics and hospital sitesin [place], [place], [place] and [place]. This disclosure is being madepursuant to the Care Everywhere program and may not contain all information available regarding this patient. 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 Gender Identity Not on file Sexual Orientation Not on file Plan of Treatment Health Maintenance Due Date Last Done Comments LIPID TESTING 1980 MAMMOGRAM 1980 HIV SCREENING 1995 HEPATITIS C SCREENING 03/20/1998 DTAP/TDAP/TD VACCINES (1 - Tdap) 1999 HEPATITIS B VACCINE (1 of 3 - 19+ 3-dose series) 1999 HPV VACCINE (1 - 3-dose SCDM series) 2007 DEPRESSION SCREENING 03/23/2024 COVID-19 VACCINE (1 - 2023-2 5 season) 2024 INFLUENZA VACCINE (#1) 2024 ZOSTER VACCINE (1 of 2) 2030 HIB VACCINE Aged Out No longer eligi ble based on patient's age to complete this topic MENINGOCOCCAL (Group B) VACC INE SHARED DECISION-MAKING Aged Out No longer eligibl e based on patient's age to complete this topic MENINGOCOCCAL GROUPS A/C/Y/W VACCINE Aged Out No longer eligible b ased on patient's age to complete this topic PNEUMOCOCCAL VACCINE Aged Out No long er eligible based on patient's age to complete this topic Care Teams Procedure Manager Relationship Specialty Start Date End Date Leanne Lopez MD [address] [place] [address] PCP - General 11/19/21
--- OUTSIDE RECORDS SUMMARY | 2024-12-26 09:44 | XMS_ITS | Clinical Summary ---
Author Organization [facility] Address [address] [place] [id number] Care Team Providers Care Geospatial Technologist Name Role Phone Vinita Altamirano MD Unavailable [phone] Leanne Lopez MD Primary Care Provider Allergies Active Allergy Reactions Criticality Noted Date Comments Erythromycin Medications ergocalciferol (VITAMIN D) 50,000 unit capsule TK 1 C PO EVERY WEEK 4 01/07/2018 Active ibuprofen (ibuprofen) 200 mg tab/cap Active linaCLOtide (Linzess) 72 mcg capsule 1 capsule (72 mcg total) as needed Active nadoloL (CORGARD) 20 mg tablet Take 0.5 tablets (10 mg total) by mouth daily 15 tablet 11 03/25/2024 Active Hospital, Clinic, or Other Facility Administered Medication Ordered Dose Route Frequency Start Date End Date Status perflutren protein-a (OPTISON) 3 mL in sodium chloride 0.9% 8 mL syringe 1 - 8 mL IV Once in imaging 01/28/2023 Active Active Problems Problem Noted Date Diagnosed Date Breast pain 04/11/2016 Encounters Date Type Department Care Team Description 11/14/2024 12:10 PM CDT - 11/14/2024 11:59 PM CDT Hospital Encounter [facility] [address] [place] [phone] Breast pain Discharge Disposition: Discharge to home or self care 11/14/2024 12:08 PM CDT - 11/14/2024 11:59 PM CDT Hospital Encounter [facility] [address] [place] [phone] Breast pain Discharge Disposition: Discharge to home or self care 09/27/[address] [phone] Lisbeth Cannon RN Medical Records Request from Last 3 Months Surgical History Surgery Date Site/Laterality Comments SECTION BREAST BIOPSY 04/14/2016 Right bengin Medical History Medical History Date Comments Diabetes mellitus Gestational diabetes Family History Medical History Relation Name Comments No Known Problems Father No Known Problems Mother Lung cancer Paternal Grandfather Stomach cancer Paternal Grandfather Relation Name Status Comments Father Mother Paternal Grandfather Social History Tobacco Use Types Packs/Day Years Used Date Smoking Tobacco: Former Smokeless Tobacco: Never Tobacco Cessation:Counseling Given: Not Answered Alcohol Use Standard Drinks/Week Comments Yes 0 (1 standard drink = 0.6 oz pur e alcohol) occasionally Comments Unknown Sex and Gender Information Value Date Recorded Sex Assigned at Not on file 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 Gender Identity Not on file Sexual Orientation Not on file Obstetrics History Para Term AB IAB SAB Ectopic Multiple Livin g Live Births 3 2 Date Outcome GA Total Labor Labor/2nd/3rd Weight Sex Type Anes PTL Alena A1 A5 Name Clin Last Filed Vital Signs Vital Sign Reading Time Taken Comments Blood Pressure 101/66 01/07/2024 10:46 AM CDT Pulse 63 01/07/2024 10:46 AM CDT Temperature - - Respiratory Rate - - Oxygen Saturation 99% 01/07/2024 10:46 AM CDT Inhaled Oxygen Concentration - - Weight 56.7 kg (125 lb) 11/14/2024 12:52 PM CDT Height 162.6 cm (5' 4) 11/14/2024 12:52 PM CDT Body Mass Index 21.46 11/14/2024 12:52 PM CDT Plan of Treatment Health Maintenance Due Date Last Done Comments Cervical Cancer Screening 1980 Depression Screening 1980 Hepatitis C Screening 1980 DTaP/Tdap/Td Vaccine (1 - Tdap) 1991 Varicella Vaccines (1 of 2 - 13+ 2-dose series) 1993 Hepatitis B Screening 1998 Regular Well Visit/Exam 18-64 1998 HPV Vaccines (1 - 3-dose SCDM series) 2007 Covid-19 Vaccine ( season) 2024 02/13/2021, 08/02/2020, 07/12/2020 Influenza Vaccine (#1) 2024 Breast Cancer Screening-Mammogram 11/14/2025 11/14/2024, 11/26/2023, 10/28/2023, Additional history exists Pneumococcal vaccine <65 Aged Out No longer eligible based on patient's age to complete this topic Procedures Procedure Name Priority Date/Time Associated Diagnosis Comments US BREAST BILATERAL LIMITED Schedule Routine, Read Routine (OP Routine) 11/14/2024 1:41 PM CDT Breast pain DIAGNOSTIC MAMMOGRAM BILATERAL W POLINA Schedule Routine, Read Routine (OP Routine) 11/14/2024 1:06 PM CDT Breast pain from Last 3 Months Results * US Breast Bilateral Limited (11/14/2024 1:41 PM CDT) Anatomical Region Laterality Modality Breast Bilateral Ultrasound 11/14/2024 1:46 PM CDT Impressions 11/14/2024 1:46 PM CDT 1. No new suspicious mammographic abnormality in EITHER breast. 2. Focal pain in the RIGHT breast, in the region of previous benign biopsied mass. Clinical follow-up is recommended. OVERALL FINAL ASSESSMENT: BI-RADS Category 2: Benign. RECOMMENDATION: 1. Annual screening mammography is recommended. 2. Clinical follow-up is recommended. Dr. Palafox discussed the above findings and recommendations with the patient, who expressed her understanding of the management plan. Electronically signed by: Patricia Palafox M.D. Narrative 11/14/2024 1:46 PM CDT EXAMINATION: BILATERAL DIGITAL DIAGNOSTIC MAMMOGRAM INCLUDING CAD AND BILATERAL DIGITAL BREAST TOMOSYNTHESIS; BILATERAL BREAST SONOGRAM HISTORY: 44-year-old woman presenting with an area of focal pain in the RIGHT breast. COMPARISON: Multiple prior mammograms dating back to 2021 TECHNIQUE: Full field digital mammographic views of BOTH breasts were performed, including computer aided detection (CAD) and BILATERAL digital breast tomosynthesis (DBT). Directed ultrasound evaluation of BOTH breasts was performed. BREAST PARENCHYMAL COMPOSITION: The breasts are heterogeneously dense, which may obscure small masses. MAMMOGRAM FINDINGS: A square marker demarcates area sided pain. There is no new suspicious abnormality subjacent to this marker. There is an asymmetry in the inner LEFT breast should be further evaluated with ultrasound. Multiple fluctuating bilateral breast masses, many of which have been shown to be benign cysts on prior ultrasounds.. SONOGRAM FINDINGS: RIGHT breast, 11:00, 6 cm the nipple, adjacent to area of pain, there is a simple cyst measuring up to 1.1 cm. RIGHT breast, 11:00, 4 cm the nipple, area of pain, there is a previously biopsied oval hypoechoic mass with circumscribed margins, no internal vascularity, and biopsy clip, compatible with a previous benign biopsy. LEFT breast, 9:00, 4 cm the nipple, there is a 0.8 cm x 1.0 cm x 0.5 cm complicated benign cyst corresponding to the asymmetry on mammogram. us Vinita Altamirano MD IMG MAMMO PROCEDURES Fin al Result * Diagnostic Mammogram Bilateral W Polina (11/14/2024 1:06 PM CDT) Anatomical Region Laterality Modality Breast Bilateral Mammography 11/14/2024 1:46 PM CDT Impressions 11/14/2024 1:46 PM CDT 1. No new suspicious mammographic abnormality in EITHER breast. 2. Focal pain in the RIGHT breast, in the region of previous benign biopsied mass. Clinical follow-up is recommended. OVERALL FINAL ASSESSMENT: BI-RADS Category 2: Benign. RECOMMENDATION: 1. Annual screening mammography is recommended. 2. Clinical follow-up is recommended. Dr. Palafox discussed the above findings and recommendations with the patient, who expressed her understanding of the management plan. Electronically signed by: Patricia Palafox M.D. Narrative 11/14/2024 1:46 PM CDT EXAMINATION: BILATERAL DIGITAL DIAGNOSTIC MAMMOGRAM INCLUDING CAD AND BILATERAL DIGITAL BREAST TOMOSYNTHESIS; BILATERAL BREAST SONOGRAM HISTORY: 44-year-old woman presenting with an area of focal pain in the RIGHT breast. COMPARISON: Multiple prior mammograms dating back to 2021 TECHNIQUE: Full field digital mammographic views of BOTH breasts were performed, including computer aided detection (CAD) and BILATERAL digital breast tomosynthesis (DBT). Directed ultrasound evaluation of BOTH breasts was performed. BREAST PARENCHYMAL COMPOSITION: The breasts are heterogeneously dense, which may obscure small masses. MAMMOGRAM FINDINGS: A square marker demarcates area sided pain. There is no new suspicious abnormality subjacent to this marker. There is an asymmetry in the inner LEFT breast should be further evaluated with ultrasound. Multiple fluctuating bilateral breast masses, many of which have been shown to be benign cysts on prior ultrasounds.. SONOGRAM FINDINGS: RIGHT breast, 11:00, 6 cm the nipple, adjacent to area of pain, there is a simple cyst measuring up to 1.1 cm. RIGHT breast, 11:00, 4 cm the nipple, area of pain, there is a previously biopsied oval hypoechoic mass with circumscribed margins, no internal vascularity, and biopsy clip, compatible with a previous benign biopsy. LEFT breast, 9:00, 4 cm the nipple, there is a 0.8 cm x 1.0 cm x 0.5 cm complicated benign cyst corresponding to the asymmetry on mammogram. Vinita Altamirano MD IM MAMMO PROCEDURES Fin al Result from Last 3 Months Insurance [facility] [employer] ALLIED BENEFITS [id number] ANTHEM ACCESS CHOICE ANTHEM ACCESS BLUE ACCESS OOS ALLIED [place] [address] BLUE ACCESS OOS ALLIED BENEFITS [employer] Care Teams Geospatial Technologist Relationship Specialty Start Date End Date Leanne Lopez MD [address] [place] [address] PCP - General Family Medicine 10/25/20 Vinita Altamirano MD [address] [place] [address] Referring Physician Gynecology 10/25/20
== END 2024-12-26 09:05 | disposition home or self-care (01) ==
PROVIDERS: PCP Family Medicine; Visit Provider Family Medicine
DX: R51.9 Headache, unspecified (principal); Z82.49 Family history of ischemic heart disease and other diseases of the circulatory system
CPT/HCPCS: 70544

== ENCOUNTER 2025-01-04 09:19 | Outpatient (CLI) | payer OTHER, SELFPAY ==
--- NOTE | ~2025-01-04 | US_ITS ---
Examination: US abdomen complete Clinical History: Z82.49 - Family history of ischemic heart disease and oth... . Comparison: None Technique: Complete abdominal sonography Findings: Liver: Normal size. Normal echotexture. No intrahepatic biliary ductal dilatation. Normal hepatopedal flow main portal vein. Tiny hyperechoic focus right lobe most consistent with hemangioma. Common duct: Normal caliber, 1 mm. Gallbladder: No stones. No wall thickening. No pericholecystic fluid. Spleen: Unremarkable. Pancreas: Unremarkable. Kidneys: Mild bilateral hydronephrosis. Aorta: No aneurysmal dilatation. Retrohepatic IVC: Unremarkable. IMPRESSION: 1. Mild bilateral hydronephrosis. 2. No other acute findings. Reviewed, dictated and finalized at location R.
== END 2025-01-04 09:20 | disposition home or self-care (01) ==
LOC: MICIMG 09:19
PROVIDERS: PCP Family Medicine; Visit Provider Family Medicine
DX: N13.30 Unspecified hydronephrosis (principal); I45.81 Long QT syndrome; Z82.49 Family history of ischemic heart disease and other diseases of the circulatory system
CPT/HCPCS: 76700